=== PATIENT | female | born 1990 | race Caucasian/White ===

== ENCOUNTER 2018-03-08 03:54 | Emergency (ER) | payer MEDICAID ==
[2018-03-08] MEDS ORDERED: BUPR200T18 PO (03:56)
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
[2018-03-08] MEDS ORDERED: HYDROmorphone* 1 MG/ML 1 MG/ML ML IVP ONE ×2 (04:10→06:10)
[2018-03-08 04:33] LABS: PLATELET COUNT, AUTOMATED 172 K/uL (150-450)
[2018-03-08] MEDS ORDERED: EMS NS 0.9%(*) 1000 ML BAG 1,000 ML IV ONE (04:40)
[2018-03-08 04:41] LABS: INR 1.01
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
[2018-03-08] MEDS ORDERED: NS(*) 0.9% 1000 ML BAG 1,000 ML IV ONE (05:30)
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
[2018-03-08] MEDS ORDERED: ONDANSETRON 4 MG/2 ML VIAL IVP ONE (06:10)
[2018-03-08] MEDS ORDERED: KETAMINE HCL 500 MG/5 ML VIAL IVP ONE (07:10)
[2018-03-08] MEDS ORDERED: PROPOFOL EMUL 10MG/ML 20 ML VL IV ONE (07:10)
[2018-03-08] MEDS ORDERED: fentaNYL CITR 100 MCG/2 ML AMP IVP ONE (08:25)
[2018-03-08 08:45] VITALS: BP 130/86
--- NOTE | 2018-03-08 09:28 | RADIOLOGY IMAGING REPORT ---
FACILITY: [facility] PATIENT NAME: Shannon Perez : 1990 MR: [id number] V: [id number] EXAM DATE: ORDERING PHYSICIAN: ELLEN CARLSON TECHNOLOGIST: Location: [facility] Patient: Shannon Perez : 1990 Visit/Account:[id number] Date of Sevice: 03/08/2018 ANKLE 2 VIEW LEFT time stamp 0825 hours COMPARISON: 03/01/1718 at 0443 hours. HISTORY: post reduction TECHNIQUE: 2 post reduction views of the left ankle were obtained. FINDINGS: BONES: There is a splint present which obscures the fine bony details. Comminuted fracture of the distal tibial metadiaphysis and metaphysis, without appreciable intra-christian cular extension, no appreciable change in fracture fragment alignment with the metaphysis displaced a nd angulated laterally to a similar degree. Mildly comminuted distal fibular diaphysis fracture with mild lateral displacement and angulation, an d mild anterior angulation also unchanged. No new findings. Calcaneal height is preserved. Mild narrowing of the tibiotalar joint anteriorly. SOFT TISSUES: Diffuse soft tissue swelling. EFFUSION: None visible. OTHER: Negative. IMPRESSION: Acute comminuted fractures of the distal left tibia and fibula, without significant change in alignme nt post splint placement. Report Dictated By: Aamir Briseno at 03/08/2018 9:21 AM Report E-Signed By: Aamir Briseno at 03/08/2018 9:24 AM WSN:[id number]
== END 2018-03-08 09:18 | disposition home or self-care (01) ==
LOC: ER 03:58
DX: S82.842A Displaced bimalleolar fracture of left lower leg, initial encounter for closed fracture (principal); V86.99XA Unspecified occupant of other special all-terrain or other off-road motor vehicle injured in nontraffic accident, initial encounter
CPT/HCPCS: 27810; 36415; 70450; 71045; 72125; 72170; 73590; 73600; 73610; 81001; 83605; 84703; 85025; 85610; 85730; 96361; 96374; 96375; 96376; 99152; 99284; J1170; J2405; J2704; J3010; J7030; 82040; 82247; 82310; 82374; 82435; 82565; 82947; 84075; 84132; 84155; 84295; 84450; 84460; 84520